=== PATIENT | male | born 1940 | race Caucasian/White ===

== ENCOUNTER 2021-07-02 09:00 | Observation (INO) | payer BC, MEDICARE ==
[2021-07-02] MEDS ORDERED: Iothalamate Meglumine 60% 50 ML VIAL FS ONE (11:26)
[2021-07-02] MEDS ORDERED: Indomethacin 50 MG SUPP ONE (11:29)
[2021-07-02] MEDS ORDERED: Fentanyl 100 MCG/2 ML VIAL ONE (11:48)
[2021-07-02] MEDS ORDERED: SUGAMMADEX SODIUM 200 MG/2 ML VIAL ONE (11:49)
[2021-07-02] MEDS ORDERED: Famotidine/PF 20 mg/2ml Vial ONE (11:49)
[2021-07-02] MEDS ORDERED: Levofloxacin 500 mg/D5W 100 ml Premix Bag ONE (11:52)
[2021-07-02] MEDS ORDERED: Ondansetron PF 4 MG/2 ML Vial ONE (12:03)
[2021-07-02] MEDS ORDERED: Rocuronium Bromide 10 MG/ML (10ML VIAL) ONE (12:03)
[2021-07-02] MEDS ORDERED: Metoclopramide HCl 10 MG/2 ML VIAL ONE (12:03)
[2021-07-02] MEDS ORDERED: Lidocaine 1% PF 5 ML VIAL ONE (12:03)
[2021-07-02] MEDS ORDERED: PROPOFOL 200 MG/20 ML VIAL ONE (12:03)
[2021-07-02] MEDS ORDERED: PHENYLEPHRINE-NS 100 MCG/ML 10 ML SYRINGE ONE (12:03)
[2021-07-02] MEDS ORDERED: ePHEDrine 50 MG/ML VIAL ONE (12:03)
[2021-07-02] MEDS ORDERED: Labetalol HCl 100 MG/20 ML VIAL ONE (14:22)
[2021-07-02] MEDS ORDERED: Calcium Carbonate 500 MG ChewTAB PO PRN (14:41)
[2021-07-02] MEDS ORDERED: Mag-Al 1200 mg/1200 mg/30 ML UDCUP PO PRN (14:41)
[2021-07-02] MEDS ORDERED: Dextrose 50% Abboject 50 ML SYRINGE SLOW IVP PRN (14:41)
[2021-07-02] MEDS ORDERED: Dextrose 5% in Water 1,000 ML IV PRN (14:41)
[2021-07-02] MEDS ORDERED: Acetaminophen 325 MG TAB PO PRN (14:41)
[2021-07-02] MEDS ORDERED: Ondansetron PF 4 MG/2 ML Vial IVP PRN (14:41)
[2021-07-02] MEDS ORDERED: Promethazine HCl 25 MG/ML VIAL IM PRN (14:41)
[2021-07-02] MEDS ORDERED: Morphine 4 MG/ML VIAL SLOW IVP PRN (14:41)
[2021-07-02] MEDS ORDERED: HYDROcodone/Acetaminophen 7.5/325 mg Tablet PO PRN (14:41)
[2021-07-02] MEDS ORDERED: hydrALAZINE 20 MG/ML VIAL ONE (15:04)
[2021-07-02 17:42] VITALS: BMI 32.2
[2021-07-02] MEDS: Lactated Ringer's 1,000 ML IV SCH (18:12)
[2021-07-02] MEDS: hydrALAZINE 20 MG/ML VIAL SLOW IVP PRN (18:12)
[2021-07-02] MEDS: Gabapentin 300 MG CAP PO SCH (21:02)
[2021-07-02] MEDS: Famotidine 20 MG TAB PO SCH (21:02)
[2021-07-02] MEDS: Famotidine/PF 20 mg/2ml Vial SLOW IVP SCH (21:11)
[2021-07-02] MEDS: cycloSPORINE 0.05% Ophthalmic Droperette EA EYE SCH (22:00)
[2021-07-03] MEDS: Lactated Ringer's 1,000 ML IV SCH (04:33)
[2021-07-03] MEDS: hydrALAZINE 20 MG/ML VIAL SLOW IVP PRN (04:33)
[2021-07-03] MEDS: Gabapentin 300 MG CAP PO SCH ×2 (08:21→15:24)
[2021-07-03] MEDS ORDERED: Midazolam HCl 2 mg/2 ml Vial ONE (08:26)
[2021-07-03] MEDS ORDERED: Fentanyl 100 MCG/2 ML VIAL ONE ×2 (08:26→11:14)
[2021-07-03] MEDS ORDERED: EPINEPHrine 1 MG/ML AMP ONE (08:52)
[2021-07-03] MEDS ORDERED: Bupivacaine 0.25% HCL 30 ML VIAL ONE (08:52)
[2021-07-03] MEDS ORDERED: Empagliflozin 25 MG TAB PO SCH (09:00)
[2021-07-03] MEDS ORDERED: Cholecalciferol 1,000 UNITS (25 MCG) TAB PO SCH (09:00)
[2021-07-03] MEDS ORDERED: Spironolactone 25 MG TAB PO SCH (09:00)
[2021-07-03] MEDS ORDERED: Losartan 25 MG TAB PO SCH (09:00)
[2021-07-03] MEDS ORDERED: Rocuronium Bromide 10 MG/ML (10ML VIAL) ONE (09:39)
[2021-07-03] MEDS ORDERED: Glycopyrrolate 0.2 MG/ML 5 ML SYRINGE ONE (09:39)
[2021-07-03] MEDS ORDERED: Lidocaine 1% PF 5 ML VIAL ONE (09:39)
[2021-07-03] MEDS ORDERED: Ondansetron PF 4 MG/2 ML Vial ONE (09:39)
[2021-07-03] MEDS ORDERED: PROPOFOL 200 MG/20 ML VIAL ONE (09:39)
[2021-07-03] MEDS ORDERED: PHENYLEPHRINE-NS 100 MCG/ML 10 ML SYRINGE ONE (09:39)
[2021-07-03] MEDS ORDERED: ceFAZolin 2 GM/Dextrose 50 ML IVPB ONE (09:48)
[2021-07-03] MEDS: Famotidine/PF 20 mg/2ml Vial SLOW IVP SCH (12:31)
[2021-07-03] MEDS: Famotidine 20 MG TAB PO SCH (12:34)
[2021-07-03 13:56] VITALS: TEMP 97.7
[2021-07-03] MEDS: cycloSPORINE 0.05% Ophthalmic Droperette EA EYE SCH (14:55)
[2021-07-03 15:04] VITALS: BP 116/69
== END 2021-07-03 15:39 | disposition home or self-care (01) ==
LOC: SDC 09:00 → T4-A 14:23
PROVIDERS: ADMIT Internal Medicine Gastroenterology; ATTEND Internal Medicine Gastroenterology
PROC: 0FC98ZZ Extirpation of Matter from Common Bile Duct, Via Natural or Artificial Opening Endoscopic (ICD-10-PCS; principal; 2021-07-02)
PROC: 0F798ZZ Dilation of Common Bile Duct, Via Natural or Artificial Opening Endoscopic (ICD-10-PCS; 2021-07-02)
PROC: 0FT44ZZ Resection of Gallbladder, Percutaneous Endoscopic Approach (ICD-10-PCS; 2021-07-03)
DX: K80.64 Calculus of gallbladder and bile duct with chronic cholecystitis without obstruction (principal); M19.90 Unspecified osteoarthritis, unspecified site; I11.0 Hypertensive heart disease with heart failure; I50.9 Heart failure, unspecified; I25.10 Atherosclerotic heart disease of native coronary artery without angina pectoris; E11.9 Type 2 diabetes mellitus without complications; E78.00 Pure hypercholesterolemia, unspecified; Z87.891 Personal history of nicotine dependence; Z79.82 Long term (current) use of aspirin; Z79.84 Long term (current) use of oral hypoglycemic drugs; Z79.899 Other long term (current) drug therapy; Z95.1 Presence of aortocoronary bypass graft
CPT/HCPCS: 43262; 43264; 47562; 74330; 93005; Q9961; 88304; 93010; 96374; 96376; C1713; G0378; J0171; J0360; J0690; J1956; J2250; J2405; J2704; J2765; J3010; J3490; J7120; S0020; S0028